=== PATIENT | male | born 1965 | race Hispanic/Latino ===

== ENCOUNTER 2016-12-22 06:26 | Emergency (ER) | payer BC, OTHER ==
[2016-12-22] MEDS ORDERED: PROVENTIL IH ONE (06:42)
--- NOTE | 2016-12-22 07:21 | XRay Report ---
Chest 2 views: History: Cough. Findings: Normal cardiomediastinal silhouette the trachea is midline. Ill-defined large density left lower lobe probably suggestive pneumonitis and less likely segmental atelectasis. Impression: Probable pneumonia left lower lobe.
[2016-12-22] MEDS ORDERED: DELTASONE PO ONE (07:32)
[2016-12-22] MEDS ORDERED: MOTRIN PO ONE (07:58)
--- NOTE | 2016-12-22 08:18 | Emergency Department Report ---
ED Shortness of Breath HPI - General Chief Complaint: Upper Respiratory Infection Stated Complaint: BRONCHITIS Time Seen by Provider: 12/22/16 07:53 Source: patient Mode of arrival: Ambulatory Limitations: No Limitations - History of Present Illness Initial Comments: 51-year-old male past medical history none presents with complaint of approximately 2 weeks of persistent cough. Patient states that he began coughing 2 weeks ago slightly productive with greenish sputum. Denies fevers or chills denies significant shortness of breath does state that after coughing fits he feels slightly short of breath. Denies shortness of breath with exertion's denies any chest pain. Patient speaking in full sentences no audible stridor or wheezing and no visible respiratory distress. Patient states he went to urgent care approximately one week ago and was prescribed cough medicine and albuterol inhaler and a course of antibiotics. States that this week a family member tested positive for influenza. Patient presents today because symptoms have persisted. Denies worsening of symptoms but states that have not significantly improved using the medicines he was given. Patient is awake alert and oriented 3 not in acute distress resting comfortably on examination bed. Denies any recent travel. Patient works for [employer] department at [employer]. Denies being a smoker, deneis etoh or drug use. MD Complaint: shortness of breath, cough Onset/Timin -: week(s) Severity: moderate Consistency: constant Improves With: bronchodilators Context: recent URI Associated Symptoms: cough Treatments Prior to Arrival: other (cefdinir, proair) - Related Data Home Oxygen Therapy: No Home Medications Medication Instructions Recorded Confirmed Last Taken Benzonatate 100 mg PO TID 12/22/16 12/22/16 Unknown Cefdinir 300 mg PO BID 12/22/16 12/22/16 Unknown ProAir HFA Inhaler 2 puff IH BID 12/22/16 12/22/16 Unknown Promethazine /Codeine 5 ml PO HS PRN 12/22/16 12/22/16 Unknown Previous Rx's Medication Instructions Recorded Last Taken Type Amoxicillin/Potassium Clav 1 each PO BID #14 tablet 12/22/16 Unknown Rx [Augmentin 875-125 Tablet] Azithromycin [Zithromax Z-LUISITO] 250 mg PO QDAY #6 tablet 12/22/16 Unknown Rx Naproxen 500 mg PO BID PRN #30 tablet 12/22/16 Unknown Rx Phenylephrine/Dm/Acetaminop/GG 10 ml PO QID PRN #1 liquid 12/22/16 Unknown Rx [Mucinex Igha-Kuf-Oebhwnczba Lq] Allergies Allergy/AdvReac Type Severity Reaction Status Date / Time No Known Allergies Allergy Verified 08/13/15 23:58 ED Review of Systems ROS: Stated complaint: BRONCHITIS Other details as noted in HPI Constitutional: malaise. denies: chills, fever Eyes: denies: eye pain, eye discharge, vision change ENT: denies: ear pain, throat pain Respiratory: cough. denies: shortness of breath, wheezing Cardiovascular: denies: chest pain, palpitations Endocrine: no symptoms reported Gastrointestinal: denies: abdominal pain, nausea, diarrhea Genitourinary: denies: urgency, dysuria Musculoskeletal: denies: back pain, joint swelling, arthralgia Skin: denies: rash, lesions Neurological: denies: headache, weakness, paresthesias Psychiatric: denies: anxiety, depression Hematological/Lymphatic: denies: easy bleeding, easy bruising ED Past Medical Hx - Past Medical History Previous Medical History?: No - Surgical History Past Surgical History?: No Hx Pacemaker: No - Social History Smoking Status: Never Smoker Substance Use Type: None - Medications Home Medications: Home Medications Medication Instructions Recorded Confirmed Last Taken Type Amoxicillin/Potassium Clav 1 each PO BID #14 tablet 12/22/16 Unknown Rx [Augmentin 875-125 Tablet] Azithromycin [Zithromax Z-LUISITO] 250 mg PO QDAY #6 tablet 12/22/16 Unknown Rx Benzonatate 100 mg PO TID 12/22/16 12/22/16 Unknown History Cefdinir 300 mg PO BID 12/22/16 12/22/16 Unknown History Naproxen 500 mg PO BID PRN #30 tablet 12/22/16 Unknown Rx Phenylephrine/Dm/Acetaminop/GG 10 ml PO QID PRN #1 liquid 12/22/16 Unknown Rx [Mucinex Xjox-Jac-Spofxjuafu Lq] ProAir HFA Inhaler 2 puff IH BID 12/22/16 12/22/16 Unknown History Promethazine /Codeine 5 ml PO HS PRN 12/22/16 12/22/16 Unknown History ED Physical Exam - General Limitations: No Limitations General appearance: alert, in no apparent distress - Head Head exam: Present: atraumatic, normocephalic - Eye Eye exam: Present: normal appearance - ENT ENT exam: Present: mucous membranes moist - Neck Neck exam: Present: normal inspection - Respiratory Respiratory exam: Present: rhonchi (left sided rhonchi). Absent: respiratory distress - Cardiovascular Cardiovascular Exam: Present: regular rate, normal rhythm. Absent: systolic murmur, diastolic murmur, rubs, gallop - GI/Abdominal GI/Abdominal exam: Present: soft, normal bowel sounds - Rectal Rectal exam: Present: deferred - Extremities Exam Extremities exam: Present: normal inspection - Back Exam Back exam: Present: normal inspection - Neurological Exam Neurological exam: Present: alert, oriented X3 - Psychiatric Psychiatric exam: Present: normal affect, normal mood - Skin Skin exam: Present: warm, dry, intact, normal color. Absent: rash ED Course Vital Signs 12/22/16 12/22/16 12/22/16 06:31 07:17 07:35 Temperature 97.9 F Pulse Rate 79 Pulse Rate [ 72 78 Anterior Bilateral Throughout] Pulse Rate [ 72 78 Posterior Bilateral Throughout] Respiratory 20 Rate Respiratory 20 20 Rate [Anterior Bilateral Throughout] Respiratory 20 20 Rate [Posterior Bilateral Throughout] Blood Pressure 126/77 Blood Pressure [Right] O2 Sat by Pulse 96 Oximetry 12/22/16 08:46 Temperature 98 F Pulse Rate 72 Pulse Rate [ Anterior Bilateral Throughout] Pulse Rate [ Posterior Bilateral Throughout] Respiratory 18 Rate Respiratory Rate [Anterior Bilateral Throughout] Respiratory Rate [Posterior Bilateral Throughout] Blood Pressure Blood Pressure 106/71 [Right] O2 Sat by Pulse 95 Oximetry ED Medical Decision Making - Lab Data Result diagrams: 12/22/16 08:05 12/22/16 08:05 - Medical Decision Making A/P: left sided pneumonia 1-As pt has evidence of left sided PNA on CXR and recently has been using cefdinir will change ABX regimen as recommended by uptodate.com fro empiric CAP coverage. https://www.uptodate.com/contents/lcqciznxn-fn-clyuamxwn-acquired- abucxwymj-eg-yykrym-ml-cuy-yfdozyaooy-setting?source=search_result&search=cap% 20treatment%20adult&selectedTitle=2~150#H11 2- Does not meet SIRS criteria, no clincial signs of sepsis. PSI/PORT Score 51 points. Risk Class II, 0.6-0.9% mortality. Outpatient treatment reasonable, barring other factors affecting care.[email or web address]://www.mdcalc.com/xzl-kqxj-etazb- cxcafvcwn-cpgojepl-ertmt-cap 3-vital signs stable for discharge. I advised the patient that should he develop severe shortness of breath, fevers, chills, extreme fatigue, nausea or vomiting or fevers above 100.4 Fahrenheit despite Tylenol and Motrin used to return to the ED TENISHA. Patient stated he understood my instructions. 4- I discussed case with Dr. Morillo before discharge 5- Naproxen PRN, Mucinex PRN Critical care attestation.: If time is entered above; I have spent that time in minutes in the direct care of this critically ill patient, excluding procedure time. ED Disposition Clinical Impression: Pneumonia Qualifiers: Pneumonia type: due to unspecified organism Laterality: left Lung location: lower lobe of lung Qualified Code(s): J18.1 - Lobar pneumonia, unspecified organism Disposition: TO HOME OR SELFCARE Is pt being admited?: No Does the pt Need Aspirin: No Condition: Stable Instructions: Community-acquired Pneumonia (ED) Prescriptions: Amoxicillin/Potassium Clav [Augmentin 875-125 Tablet] 1 each PO BID #14 tablet Azithromycin [Zithromax Z-LUISITO] 250 mg PO QDAY #6 tablet Naproxen 500 mg PO BID PRN #30 tablet PRN Reason: Pain Phenylephrine/Dm/Acetaminop/GG [Mucinex Tnub-Zxm-Qyyozzrhkd Lq] 10 ml PO QID PRN #1 liquid PRN Reason: Cough Referrals: PATRIC PRIDE MD [Staff Physician] - 3-5 Days TRACE VILLA MD [Staff Physician] - 3-5 Days Forms: Work/School Release Form(ED) Time of Disposition: 09:16
[2016-12-22 08:20] LABS: Basophils % (Auto) 0.7 % (0.0-1.8); Eosinophils % (Auto) 1.2 % (0.0-4.3); Hematocrit 42.4 % (35.5-45.6); Hemoglobin 14.8 gm/dl (11.8-15.2); Mean Corpuscular HGB Conc 35 % (32-34); Mean Corpuscular Hemoglobin 34 pg (28-32); Mean Corpuscular Volume 97 fl (84-94); Platelet Count 298 K/mm3 (140-440); Red Blood Count 4.37 M/mm3 (3.65-5.03); Red Cell Distribution Width 12.6 % (13.2-15.2); White Blood Count 3.6 K/mm3 (4.5-11.0)
[2016-12-22 08:37] LABS: Anion Gap 19 mmol/L; BUN/Creatinine Ratio 19; Blood Urea Nitrogen 19 mg/dL (9-20); Calcium 8.9 mg/dL (8.4-10.2); Carbon Dioxide 27 mmol/L (22-30); Chloride 98.5 mmol/L (98-107); Glucose 122 mg/dL (75-100); Sodium 140 mmol/L (137-145)
[2016-12-22 08:47] VITALS: BP 106/71
== END 2016-12-22 09:33 | disposition home or self-care (01) ==
LOC: ED 06:26
DX: J18.1 Lobar pneumonia, unspecified organism (principal)
CPT/HCPCS: 36415; 71020; 80048; 82805; 85025; 87400; 87491; 94640; 99284; J7512

== ENCOUNTER 2017-09-11 06:06 | Outpatient (CLI) | payer BC ==
[2017-09-11 07:15] LABS: Alanine Aminotransferase 26 units/L (7-56); Albumin 4.3 g/dL (3.9-5); BUN/Creatinine Ratio 16; Blood Urea Nitrogen 18 mg/dL (9-20); Calcium 8.9 mg/dL (8.4-10.2); Hemolysis Index 3; Uric Acid 9.2 mg/dL (3.5-7.6)
== END 2017-09-11 06:07 | disposition home or self-care (01) ==
LOC: LAB 06:06
PROVIDERS: ATTEND Podiatrist Foot & Ankle Surgery
DX: M10.072 Idiopathic gout, left ankle and foot (principal)
CPT/HCPCS: 36415; 80053; 84550

== ENCOUNTER 2018-04-26 08:30 | Outpatient (CLI) | payer BC ==
[2018-04-26 10:20] LABS: Uric Acid 6.9 mg/dL (3.5-7.6)
[2018-04-26 11:35] LABS: Chol/HDL Ratio 3.27 %
== END 2018-04-26 08:31 | disposition home or self-care (01) ==
LOC: LAB 08:30
PROVIDERS: ATTEND Internal Medicine
DX: E78.5 Hyperlipidemia, unspecified (principal); E66.3 Overweight; E56.9 Vitamin deficiency, unspecified; M10.9 Gout, unspecified
CPT/HCPCS: 36415; 80061; 82306; 84550

== ENCOUNTER 2018-06-14 14:40 | Outpatient (CLI) | payer BC ==
--- NOTE | 2018-06-14 21:25 | XRay Report ---
PROCEDURE: XR FOOT 3+V RT TECHNIQUE: Frontal, lateral, oblique views right foot HISTORY: Neoplasm of unspecified behavior of bone, soft tissue, and skin COMPARISONS: None FINDINGS: There is increased soft tissue in the medial aspect of the right forefoot. There are erosive changes involving the medial aspect of the distal great toe metatarsal and proximal phalanx of the great toe with sclerotic margins and some reactive bone. There is the appearance of degenerative change of the great toe metatarsal phalangeal joint with some joint space loss. The bony structures are otherwise unremarkable. IMPRESSION: 1. 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 If further imaging is required, CT or MRI may be helpful. This document is electronically signed by Meera Robin MD., Jun 14 2018 09:23:24 PM ET
== END 2018-06-14 14:41 | disposition home or self-care (01) ==
LOC: XRAY 14:40
PROVIDERS: ATTEND Podiatrist Foot & Ankle Surgery
DX: M19.071 Primary osteoarthritis, right ankle and foot (principal); D49.2 Neoplasm of unspecified behavior of bone, soft tissue, and skin; M10.071 Idiopathic gout, right ankle and foot

== ENCOUNTER 2018-11-22 08:31 | Outpatient (CLI) | payer BC ==
[2018-11-22 11:03] LABS: Chol/HDL Ratio 4.39 %; Uric Acid 8.2 mg/dL (3.5-7.6)
[2018-11-27 12:22] LABS: Vitamin D, 25-OH, D2 <4 ng/mL
== END 2018-11-22 08:32 | disposition home or self-care (01) ==
LOC: LAB 08:31
PROVIDERS: ATTEND Internal Medicine
DX: M10.9 Gout, unspecified (principal); E78.5 Hyperlipidemia, unspecified; E56.9 Vitamin deficiency, unspecified
CPT/HCPCS: 36415; 80061; 82306; 84550

== ENCOUNTER 2019-01-20 06:32 | Outpatient (CLI) | payer BC ==
--- NOTE | 2019-01-20 09:00 | Cat Scan Report ---
CT neck wo con INDICATION / CLINICAL INFORMATION: 53 years Male; R22.1 LOCALIZED SWELLING MASS AND LUMP NECK. TECHNIQUE: As requested, only nonenhanced contiguous thin cut axial images were obtained. Sagittal and coronal r econstructions performed by the technologist. All CT scans at this location are performed using CT do se reduction for ALARA by means of automated exposure control. COMPARISON: None available. FINDINGS: 27 mm (transverse) x 5 cm (height) x 4.8 cm (sagittal) sized space taking lesion is seen on the left side medial to sternomastoid muscle, lateral to carotid space, posterior to left submandibu lar gland which is displaced. Appears to be an enlarged lymph node. 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 Contrast enhanced series be helpful for differentiation Smaller adjacent lymph nodes are seen. PHARYNGEAL MUCOSA: Normal nasopharynx, oropharynx and hypopharynx ORAL CAVITY: Normal including and floor of mouth LARYNX: Supraglottic, glottic and subglottic larynx are normal LYMPH NODES: See the discussion above SALIVARY GLANDS: Parotid, submandibular, and visualized sublingual glands are within normal limits. THYROID GLAND: Unremarkable. PARANASAL SINUSES: Visualized paranasal sinuses and mastoid air cells are essentially clear. SPINE: No significant abnormality of the cervical spine appreciated. BLOOD VESSELS IN THE CAROTID SPACE: Vascular structures are grossly normal in appearance. OTHER: Visualized lung apices are clear Surrounding soft tissues are otherwise grossly normal. IMPRESSION: Soft tissue mass in the left side of the neck; appears to be an enlarged lymph node; other considerat ion (because this is nonenhancing the) is type II branchial cleft cyst Signer Name: Terell Landeros MD Signed: 01/20/2019 8:56 AM Workstation Name: [id number]
== END 2019-01-20 06:33 | disposition home or self-care (01) ==
LOC: CT 06:32
PROVIDERS: ATTEND Internal Medicine
DX: R22.1 Localized swelling, mass and lump, neck (principal)
CPT/HCPCS: 70490

== ENCOUNTER 2019-02-04 06:35 | Day surgery (SDC) | payer BC ==
--- NOTE | 2019-02-04 09:06 | Short Stay Summary ---
Short Stay Documentation Date of service: 02/04/19 Narrative H&P: 5.6cm left neck mass in adult male - History Principal diagnosis: left neck mass - Allergies and Medications Current Medications: Allergies No Known Allergies Allergy (Verified 08/13/15 23:58) Home Medications Medication Instructions Recorded Confirmed Last Taken Type Amoxicillin/K Clav Tab [Augmentin 1 tab PO BID 02/04/19 02/04/19 02/03/19 History 875MG TAB] 1 Rosuvastatin Calcium 10 mg PO QHS 02/04/19 02/04/19 02/03/19 History 10 mg - Physical exam General appearance: no acute distress HEENT: Other (palpable left neck mass) - Brief post op/procedure progress note Date of procedure: 02/04/19 Pre-op diagnosis: left neck mass, brachial cleft cyst? Post-op diagnosis: same Procedure: US core biopsy of left neck mass Findings: 5.6cm predominantly sold left neck mass Surgeon: BOUBACAR CARROLL Estimated blood loss: none Pathology: list (18G core x 3) Specimen disposition: to lab Condition: stable - Hospital course Hospital course: uneventful - Disposition Condition at discharge: Good Disposition: DC-01 TO HOME OR SELFCARE Short Stay Discharge Plan Follow up with: ALLEGRA SHUKLA MD [Primary Care Provider] - 7 Days
--- NOTE | 2019-02-04 09:32 | Ultrasound Report ---
ULTRASOUND-GUIDED BIOPSY SOFT TISSUE NECK OR CHEST HISTORY: left neck mass. COMPARISON: CT neck without contrast dated 01/20/2019. PROCEDURE: The risks (including but not limited to bleeding and infection) and benefits were explain ed to the patient and informed consent was obtained. A time out procedure was performed. The proced ure site was prepped and draped in the usual sterile fashion and lidocaine was used for local anesthe carolee. Using ultrasound guidance, a 17-gauge introducer needle was advanced to the solid portion of a 5.6 x 2.8 x 5.2 cm predominantly solid well-defined left neck mass. 3 separate 1.2 cm 18-gauge core biopsie s were obtained. 2 samples were placed in formalin. One sample was placed in RPMI media. The patient tolerated the procedure well with no complications. IMPRESSION: Successful ultrasound-guided core biopsy of the complex left neck mass as described above . Signer Name: Dash Lee Jr, MD Signed: 02/04/2019 9:28 AM Workstation Name: [id number]
[2019-02-04 10:30] VITALS: BP 129/78
== END 2019-02-04 09:57 | disposition home or self-care (01) ==
LOC: CATHLABREC 06:35
PROVIDERS: ATTEND Otolaryngology
DX: R22.1 Localized swelling, mass and lump, neck (principal); C44.42 Squamous cell carcinoma of skin of scalp and neck; B97.7 Papillomavirus as the cause of diseases classified elsewhere; I10 Essential (primary) hypertension; Z80.8 Family history of malignant neoplasm of other organs or systems; Z79.899 Other long term (current) drug therapy; Z82.5 Family history of asthma and other chronic lower respiratory diseases; Z98.890 Other specified postprocedural states; Z82.49 Family history of ischemic heart disease and other diseases of the circulatory system
CPT/HCPCS: 20206; 76942; 88184; 88185; 88305; 88307; 88341; 88342

== ENCOUNTER 2019-11-12 08:40 | Outpatient (CLI) | payer BC ==
[2019-02-27 12:08] LABS: Blood Urea Nitrogen 17 mg/dL (9-20)
[2019-11-12 09:18] LABS: Hematocrit 42.3 % (35.5-45.6); Hemoglobin 14.7 gm/dl (11.8-15.2); Mean Corpuscular HGB Conc 35 % (32-34); Mean Corpuscular Volume 97 fl (84-94); Platelet Count 221 K/mm3 (140-440); Red Blood Count 4.35 M/mm3 (3.65-5.03); Red Cell Distribution Width 12.8 % (13.2-15.2)
[2019-11-12 09:49] LABS: Alanine Aminotransferase 16 units/L (7-56); Albumin 4.4 g/dL (3.9-5); BUN/Creatinine Ratio 18; Blood Urea Nitrogen 18 mg/dL (9-20); Calcium 9.6 mg/dL (8.4-10.2); Chol/HDL Ratio 3.08 %; HDL Cholesterol 78 mg/dL (40-59); Hemolysis Index 7; LDL Cholesterol,Direct 157 mg/dL (50-130); Uric Acid 8.8 mg/dL (3.5-7.6)
[2019-11-12 11:22] LABS: Total Cells Counted 100
[2019-11-12 11:23] LABS: Eosinophils % (Manual) 0 % (0.0-4.3); Platelet Estimate Consistent w Auto; RBC Morphology Normal
[2019-11-18 09:00] LABS: Vitamin D, 25-OH, D2 SEE SCANNED RESULT
== END 2019-11-12 08:41 | disposition home or self-care (01) ==
LOC: LAB 08:40 → PET 08:40 → LAB 08:41
PROVIDERS: ATTEND Internal Medicine
DX: Z00.00 Encounter for general adult medical examination without abnormal findings (principal); Z12.5 Encounter for screening for malignant neoplasm of prostate; E78.5 Hyperlipidemia, unspecified; Z13.29 Encounter for screening for other suspected endocrine disorder; Z13.21 Encounter for screening for nutritional disorder
CPT/HCPCS: 36415; 80053; 80061; 82306; 82565; 82607; 82962; 83036; 84153; 84443; 84520; 84550; 85007; 85025

== ENCOUNTER 2019-12-01 07:20 | Outpatient (CLI) | payer BC ==
[2019-12-01 08:17] LABS: Blood Urea Nitrogen 20 mg/dL (9-20)
--- NOTE | 2019-12-01 09:42 | Cat Scan Report ---
CT neck w con INDICATION / CLINICAL INFORMATION: 54 years Male; with history of neck mass.. TECHNIQUE: Contiguous thin cut axial images obtained through the neck following IV contrast. Sagittal and kemp l reconstructions performed by the technologist. All CT scans at this location are performed using CT dose reduction for ALARA by means of automated exposure control. COMPARISON: The study is compared to the previous CT of 01/20/2019. FINDINGS: There has been interval resection of the mass centered within the left jugulodigastric diana on from the previous CT. There also appears to be alison dissection and removal of the left submandibu lar gland with multiple surgical clips. Additionally, there are fibrotic changes within this region w hich includes the carotid sheath and may reflect postradiation or surgical changes; correlation would be needed. There is associated narrowing of the left internal jugular vein in this region. MUCOSAL SPACE: The postsurgical changes result in mild mass effect along the left parapharyngeal soft tissues at. However, there is no significant narrowing of the airway. There is relative effacement o f the left pyriform sinus. The epiglottis is appropriate in size. LYMPH NODES: There are a few scattered residual small cervical lymph nodes on the right which correla te with the prior study and are likely reactive. SALIVARY GLANDS: The visualized parotid glands appear to demonstrate fairly symmetric attenuation wit hout calcification. No focal lesions are seen within the right 70 better gland. THYROID GLAND: Unremarkable. PARANASAL SINUSES: There is complete opacification of the right sphenoid sinus with thickening of the sinus wall indicative of chronic inflammatory changes. The findings correlate with prior study. Ther e is also continued mild mucosal thickening along the inferior left maxillary sinus. SPINE: No significant abnormality of the cervical spine appreciated. VASCULAR STRUCTURES: Vascular structures are grossly normal in appearance. IMPRESSION: 1. Status post interval resection of the left neck mass and alison dissection from 01/20/2019 as abdirizak led above. Signer Name: Maximo Jenkins MD Signed: 12/01/2019 9:37 AM Workstation Name: [id number]
== END 2019-12-01 07:21 | disposition home or self-care (01) ==
LOC: CT 07:20
PROVIDERS: ATTEND Nurse Practitioner
DX: C09.1 Malignant neoplasm of tonsillar pillar (anterior) (posterior) (principal)
CPT/HCPCS: 36415; 70491; 82565; 84520; Q9967

== ENCOUNTER 2020-03-25 09:48 | Outpatient (CLI) | payer BC ==
[2020-03-25 10:34] LABS: Blood Urea Nitrogen 16 mg/dL (9-20)
--- NOTE | 2020-03-25 12:10 | Cat Scan Report ---
CT CHEST WITH CONTRAST INDICATION / CLINICAL INFORMATION: TONSIL CANCER. TECHNIQUE: Axial CT images were obtained through the chest after 100 cc IV contrast. Sagittal and coronal reform atted images. All CT scans at this location are performed using CT dose reduction for ALARA by means of automated exposure control. COMPARISON: None available. FINDINGS: HEART: No significant abnormality. THORACIC AORTA: No significant abnormality. MEDIASTINUM and MINI: No significant abnormality. LUNGS: No acute air space or interstitial disease. No suspicious pulmonary nodule or mass. PLEURA: No significant pleural effusion. No pneumothorax. SKELETAL SYSTEM: No significant abnormality. UPPER ABDOMEN: No significant abnormality. ADDITIONAL FINDINGS: None. IMPRESSION: No significant abnormality. No evidence for metastatic disease to the chest. Signer Name: Dash Lee Jr, MD Signed: 03/25/2020 12:06 PM Workstation Name: [id number]
--- NOTE | 2020-03-25 13:47 | Cat Scan Report ---
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 TECHNIQUE: 3.75 mm thick contiguous axial scans were obtained from the skull base down to the aortic arch during intravenous contrast administration. In addition to evaluation of axial source images sagittal and c oronal multiplanar reconstructions were produced and reviewed for this report. Contrast dose report: Omnipaque 300: 100 ML administered intravenously All CT imaging studies performed at this facility utilize dose modulation, iterative reconstruction o r weight based dosing, if appropriate, to obtain the lowest achievable radiation dose. FINDINGS: POSTOPERATIVE CHANGE: Patient is status post modified cervical lymph node dissection on the left with preservation of the left internal jugular vein and sternocleidomastoid muscle. Several surgical clip s are seen in this region. Surgical clips are also identified in the submandibular space on the left. There is no evidence of recurrent left-sided level 2 lymphadenopathy. No enlarged lymph nodes are id entified elsewhere. AIRWAY: No abnormalities are seen along the course of the airway. Nasopharynx, oropharynx, hypopharyn x, larynx and visualized portions of the subglottic airway all have an unremarkable appearance. LYMPH NODES: There is no indication of cervical lymphadenopathy. ORAL CAVITY/FLOOR OF MOUTH: No abnormalities are seen in evaluation of the oral cavity and tongue. Th e floor the mouth has a normal appearance. MAJOR SALIVARY GLANDS: The parotid and submandibular salivary glands have a normal appearance. NASAL CAVITY AND PARANASAL SINUSES: Evaluation of the nasal cavity reveals no abnormality. The parana ricky sinuses are free from inflammatory mucosal disease. ORBITS:No abnormalities of the visualized portions of the orbits are identified. Globes, optic nerves , extraocular muscles and lacrimal glands have an unremarkable appearance. THYROID GLAND: The thyroid gland is normal in size and homogeneous in attenuation. No focal thyroid l esions are identified. TEMPORAL BONES:Mastoid air cells are normally pneumatized. CERVICAL SPINE: Evaluation of the cervical spine reveals no significant abnormality. Normal alignment is maintained. No significant degenerative changes are identified. LUNG APICES: Evaluation of the lung apices reveals no abnormality. There is no indication of lung nod ule or infiltrate. The visualized portions of the superior mediastinum have an unremarkable appearanc e. CONTRAST ADMINISTRATION: Enhancement of normal vascular structures is demonstrated. No areas of abnor mal contrast enhancement are identified. IMPRESSION: 1. Postoperative changes left neck. 2. No indication of recurrent or residual lymphadenopathy. No significant interval change in comparis on to CT neck 12/01/2019. Signer Name: Woo Matamoros MD Signed: 03/25/2020 1:42 PM Workstation Name: [id number]
== END 2020-03-25 09:49 | disposition home or self-care (01) ==
LOC: CT 09:48
PROVIDERS: ATTEND Nurse Practitioner
DX: C09.1 Malignant neoplasm of tonsillar pillar (anterior) (posterior) (principal)
CPT/HCPCS: 36415; 70491; 71260; 82565; 84520; Q9967

== ENCOUNTER 2020-05-14 11:18 | Outpatient (CLI) | payer BC ==
[2020-05-14 11:43] LABS: Basophils % (Auto) 0.5 % (0.0-1.8); Eosinophils % (Auto) 0.7 % (0.0-4.3); Hematocrit 41.7 % (35.5-45.6); Hemoglobin 14.7 gm/dl (11.8-15.2); Lymphocytes # (Auto) 0.7 K/mm3 (1.2-5.4); Lymphocytes % (Auto) 17.6 % (13.4-35.0); Mean Corpuscular HGB Conc 35 % (32-34); Mean Corpuscular Volume 98 fl (84-94); Monocytes # (Auto) 0.5 K/mm3 (0.0-0.8); Monocytes % (Auto) 13.5 % (0.0-7.3); Platelet Count 190 K/mm3 (140-440); Red Blood Count 4.27 M/mm3 (3.65-5.03); Red Cell Distribution Width 13.3 % (13.2-15.2)
[2020-05-14 11:57] LABS: Chol/HDL Ratio 2.7 %
== END 2020-05-14 11:19 | disposition home or self-care (01) ==
LOC: LAB 11:18
PROVIDERS: ATTEND Internal Medicine
DX: C76.0 Malignant neoplasm of head, face and neck (principal); E78.5 Hyperlipidemia, unspecified
CPT/HCPCS: 36415; 80061; 82747; 85025

== ENCOUNTER 2020-09-28 10:25 | Outpatient (CLI) | payer BC ==
[2020-09-28 10:58] LABS: Blood Urea Nitrogen 16 mg/dL (9-20)
--- NOTE | 2020-09-28 13:02 | Cat Scan Report ---
CT CHEST WITH CONTRAST INDICATION / CLINICAL INFORMATION: Staging tonsil cancer. TECHNIQUE: Axial CT images were obtained through the chest after Omnipaque 300, 100 cc IV contrast. A ll CT scans at this location are performed using CT dose reduction for ALARA by means of automated ex posure control. COMPARISON: None available. FINDINGS: HEART: No significant abnormality. CORONARY ARTERY CALCIFICATION: None. THORACIC AORTA: No significant abnormality. MEDIASTINUM / MINI: No significant abnormality. PLEURA: No pleural effusion. No pneumothorax. LUNGS: No acute air space or interstitial disease. 5 mm perfissural nodule in the left is benign. ADDITIONAL FINDINGS: None. UPPER ABDOMEN: No significant abnormality. SKELETAL SYSTEM: No significant abnormality. IMPRESSION: Negative for metastatic disease. Signer Name: Jesus Kebede MD Signed: 09/28/2020 12:57 PM Workstation Name: [id number]
--- NOTE | 2020-09-28 13:16 | Cat Scan Report ---
CT NECK WITH CONTRAST HISTORY: Tonsillar cancer restaging COMPARISON: Prior CT on 03/25/2020 and on 12/01/2019 TECHNIQUE: Routine CT of the neck is performed following intravenous contrast. All CT scans at this [facility] are performed using CT dose reduction for ALARA by means of automated exposure control. CONTRAST: 100 mL Omnipaque 300 FINDINGS: There are postsurgical changes from resection of the left tonsillar mass as well as left neck lymph n ode dissection, similar to prior. There is no appreciable recurrent mass in the neck. There is no pawel picious adenopathy. There are no aggressive appearing bone lesions. Thyroid gland appears normal. There is moderate atherosclerotic plaque in both carotid bulbs without appreciable significant stenosis. IMPRESSION: 1. Stable surveillance exam without appreciable recurrent mass or suspicious adenopathy. Signer Name: Barrington Pereira MD Signed: 09/28/2020 1:11 PM Workstation Name: [id number]
== END 2020-09-28 10:26 | disposition home or self-care (01) ==
LOC: CT 10:25
PROVIDERS: ATTEND Nurse Practitioner
DX: C09.1 Malignant neoplasm of tonsillar pillar (anterior) (posterior) (principal); I65.23 Occlusion and stenosis of bilateral carotid arteries
CPT/HCPCS: 36415; 70491; 71260; 82565; 84520; Q9967

== ENCOUNTER 2020-11-16 11:27 | Outpatient (CLI) | payer BC ==
--- NOTE | 2020-11-16 13:32 | XRay Report ---
LEFT KNEE 2 VIEWS INDICATION: UNSPECIFIED TEAR OF MENISCUS. COMPARISON: None. IMPRESSION: A moderate to large joint effusion is noted on the lateral image. Normal bone mineraliz ation. No acute osseous findings or significant joint pathology is detected. If further evaluation is needed, MRI left knee without contrast should provide the most information. Signer Name: Dash Lee Jr, MD Signed: 11/16/2020 1:28 PM Workstation Name: [id number]
== END 2020-11-16 11:28 | disposition home or self-care (01) ==
LOC: XRAY 11:27
PROVIDERS: ATTEND Internal Medicine
DX: S83.207A Unspecified tear of unspecified meniscus, current injury, left knee, initial encounter (principal); M25.462 Effusion, left knee; X58.XXXA Exposure to other specified factors, initial encounter; Y93.89 Activity, other specified; Y92.89 Other specified places as the place of occurrence of the external cause; Y99.8 Other external cause status

== ENCOUNTER 2020-11-22 06:11 | Outpatient (CLI) | payer BC ==
--- NOTE | 2020-11-22 11:05 | Magnetic Resonance Report ---
MRI LEFT KNEE WITHOUT CONTRAST INDICATION / CLINICAL INFORMATION: EFFUSION, LEFT KNEE pain. TECHNIQUE: Multiplanar, multisequence MR images were obtained. No contrast used. COMPARISON: Radiographs dated 11/16/20 FINDINGS: ACL: No significant abnormality. PCL: No significant abnormality. DISTAL QUADRICEPS TENDON: No significant abnormality. PATELLAR TENDON: No significant abnormality. MEDIAL MENISCUS: Mild undersurface fraying of the posterior horn with possible tiny horizontal tear b est seen on sagittal PD image 24. LATERAL MENISCUS: No significant abnormality. MCL: No significant abnormality. LCL: No significant abnormality. DISTAL IT BAND: No significant abnormality. PATELLOFEMORAL ALIGNMENT: No significant abnormality. ARTICULAR CARTILAGE: Mild tricompartment chondrosis especially in the medial compartment. JOINT SPACE: Moderate joint effusion with mild synovitis. No significant popliteal cyst. No intra-art icular bodies. BONES: No significant bone marrow edema. No fracture. No osseous lesion. SOFT TISSUES: No significant abnormality. ADDITIONAL FINDINGS: None. IMPRESSION: 1. Possible tiny horizontal tear of the posterior horn of the medial meniscus. 2. 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 Signer Name: Mavis Pizarro MD Signed: 11/22/2020 11:01 AM Workstation Name: [id number]
== END 2020-11-22 06:12 | disposition home or self-care (01) ==
LOC: MRI 06:11
PROVIDERS: ATTEND Internal Medicine
DX: S83.242A Other tear of medial meniscus, current injury, left knee, initial encounter (principal); M65.862 Other synovitis and tenosynovitis, left lower leg; M25.462 Effusion, left knee; X58.XXXA Exposure to other specified factors, initial encounter; Y93.89 Activity, other specified; Y92.89 Other specified places as the place of occurrence of the external cause; Y99.8 Other external cause status
CPT/HCPCS: 73721

== ENCOUNTER 2021-05-18 08:10 | Outpatient (CLI) | payer BC ==
[2021-05-18 09:10] LABS: Blood Urea Nitrogen 18 mg/dL (9-20)
--- NOTE | 2021-05-18 09:56 | Cat Scan Report ---
CT CHEST WITH CONTRAST INDICATION / CLINICAL INFORMATION: HEAD AND NECK CANCER OMNI 350 100 ML. TECHNIQUE: Axial CT images were obtained through the chest after IV contrast. All CT scans at this location are performed using CT dose reduction for ALARA by means of automated exposure control. COMPARISON: September 28, 2020 FINDINGS: No focal consolidation is seen. There is a small nodular density along the fissure within the left irma ng measuring 4 mm, unchanged since prior examination. No new nodular masses identified. No mediastina l or hilar adenopathy. Heart and aorta appear normal. ADDITIONAL FINDINGS: None. UPPER ABDOMEN: Fatty infiltration the liver SKELETAL SYSTEM: Degenerative change in the spine IMPRESSION: 1. No evidence for metastatic disease. Perifissural nodule within the left lung is unchanged Signer Name: Bakari Duvall MD Signed: 05/18/2021 9:51 AM Workstation Name: [id number]
--- NOTE | 2021-05-18 10:07 | Cat Scan Report ---
CT neck w con INDICATION / CLINICAL INFORMATION: 55 years Male; HEAD AND NECK CANCER OMNI 350 100 ML. The study is compared to previous CT of 1. TECHNIQUE: Contiguous thin cut axial images obtained through the neck following IV contrast. Sagittal and kemp l reconstructions performed by the technologist. All CT scans at this location are performed using CT dose reduction for ALARA by means of automated exposure control. COMPARISON: None available. FINDINGS: MUCOSAL SPACE: There are continued postsurgical changes involving posterior left oropharyngeal soft t issues which appear to correlate with the previous CT of 09/28/2020 given the differences in technique . Multiple surgical clips are seen along the left neck including the left parapharyngeal region. The epiglottis remains appropriate in size. The residual structures are fairly symmetric. LYMPH NODES: There are some a continued a fibrotic changes involving the soft tissues of the left nec k likely on a postsurgical and/or post radiation basis. Findings are again stable in appearance. Ther e is no clear CT evidence of interval developing pathologic cervical lymphadenopathy. SALIVARY GLANDS: There has been continued interval resection of the left 70 better gland. The parotid glands demonstrate symmetric attenuation without significant interval change. THYROID GLAND: The thyroid gland remains appropriate in size and configuration. PARANASAL SINUSES: There is complete opacification of the right sphenoid sinus with notable wall thic kening indicative of chronic inflammatory process. This region was not included on the previous CT of 09/28/2020 there was noted on the prior exam of 03/25/2020. There is continued mucosal thickening adelaide g the inferior left maxillary sinus. SPINE: No significant abnormality of the cervical spine appreciated. VASCULAR STRUCTURES: There is mild atherosclerotic plaque involving carotid bifurcations bilaterally. 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 The CT chest will be dictated separate ly. IMPRESSION: 1. There are stable postoperative changes involving the left neck without significant interval change from 09/28/2020. 2. There is continued complete opacification of the right sphenoid sinus. Signer Name: Maximo Jenkins MD Signed: 05/18/2021 10:03 AM Workstation Name: [id number]
== END 2021-05-18 08:11 | disposition home or self-care (01) ==
LOC: CT 08:10
PROVIDERS: ATTEND Nurse Practitioner
DX: K76.0 Fatty (change of) liver, not elsewhere classified (principal); C76.0 Malignant neoplasm of head, face and neck; J34.89 Other specified disorders of nose and nasal sinuses; I70.0 Atherosclerosis of aorta
CPT/HCPCS: 36415; 70491; 71260; 82565; 84520; Q9967

== ENCOUNTER 2021-07-19 11:12 | Outpatient (CLI) | payer BC ==
--- NOTE | 2021-07-19 14:16 | XRay Report ---
RIGHT ANKLE 3 VIEW(S) INDICATION / CLINICAL INFORMATION: PAIN IN RIGHT FOOT COMPARISON: None available. FINDINGS: BONES / JOINT(S): No acute displaced fracture or dislocation. Well-corticated ossific bodies at the i nferior tip of lateral malleolus represents sequela of remote trauma. SOFT TISSUES: No significant abnormality. ADDITIONAL FINDINGS: None. Signer Name: Asim Charles MD Signed: 07/19/2021 2:12 PM Workstation Name: [email or web address] [id number]
--- NOTE | 2021-07-19 14:18 | XRay Report ---
RIGHT FOOT 3 VIEW(S) INDICATION / CLINICAL INFORMATION: PAIN IN RIGHT FOOT COMPARISON: Radiographs dated 06/14/2018. FINDINGS: BONES / JOINT(S): Marginal erosions at the tibial aspect of the great toe MTP joint with associated d egenerative changes of the MTP joint itself. There is soft tissue thickening and amorphous calcificat ion in the adjacent soft tissues. 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 N o acute fracture or dislocation identified. Mild hallux valgus. ADDITIONAL FINDINGS: None. Signer Name: Asim Charles MD Signed: 07/19/2021 2:14 PM Workstation Name: [email or web address] [id number]
== END 2021-07-19 11:13 | disposition home or self-care (01) ==
LOC: XRAY 11:12
PROVIDERS: ATTEND Internal Medicine
DX: M19.071 Primary osteoarthritis, right ankle and foot (principal); M20.11 Hallux valgus (acquired), right foot